=== PATIENT | male | born 1940 | race Caucasian/White ===

== ENCOUNTER 2018-04-12 17:28 | Emergency (ER) | payer MEDICARE, OTHER ==
[2018-04-12 17:43] VITALS: BP 132/73
--- NOTE | 2018-04-12 17:50 | UC ---
Eye Complaint HPI - HPI Summary HPI Summary: This is constanza Be documenting for attending Rahul Arias MD. This patient is a 77 year old M presenting to [facility] with a chief complaint of sudden loss of vision in his right eye since 16:30. The patient reports that the vision in left eye went all friedman and has now regained 1/3 of his outer field of vision. The patient reports he has had 3-4 glasses of wine. The patient rates the pain 0/10 in severity. Symptoms aggravated by nothing. Symptoms alleviated by nothing. Patient denies weakness in one side of the body , shortness of breath, or chest pain. Patient had a thalamic stroke in 2010. - History of Current Complaint Stated Complaint: LOSS OF VISION IN EYE Hx Obtained From: Patient, Family/Magnetic Prospecting Operator - patient's Onset/Duration: Sudden Onset, Lasting Hours - 1 our, Still Present Timing: Hours - 1 hour Severity Currently: None Pain Intensity: 0 Pain Scale Used: 0-10 Numeric Aggravating Factor(s): Nothing Alleviating Factor(s): Nothing Associated Signs And Symptoms: Positive: Vision Impairment Right - Allergies/Home Medications Allergies/Adverse Reactions: Allergies Allergy/AdvReac Type Severity Reaction Status Date / Time bee venom protein (honey bee) Allergy Anaphylatic Verified 04/12/18 18:38 Shock lisinopril Allergy Coughing Verified 04/12/18 18:38 Home Medications: Home Medications Atorvastatin* [Lipitor 40 MG*] 40 mg PO DAILY 04/12/18 [History Confirmed ] Calcium Carbonate/Vitamin D3 [Calcium 500 mg Chewable Tablet] 1 tab PO WEEKLY [History Confirmed 04/12/18] Carvedilol TAB* [Coreg TAB*] 6.25 mg PO DAILY 04/12/18 [History Confirmed ] Cholecalciferol (Vitamin D3) [D3-2000] 2,000 unit PO WEEKLY 04/12/18 [History Confirmed 04/12/18] Dipyridamole/Aspirin 25/200* [Aggrenox 25/200*] 1 cap PO BID 04/12/18 [History Confirmed 04/12/18] Hydrochlorothiazide TAB* [Hydrodiuril TAB*] 25 mg PO DAILY 04/12/18 [History Confirmed 04/12/18] Multivitamin [Multiple Vitamins] 1 tab PO DAILY 04/12/18 [History Confirmed ] Rabeprazole Sodium 20 mg PO DAILY 04/12/18 [History Confirmed 04/12/18] Valsartan TAB* [Diovan TAB*] 160 mg PO DAILY 04/12/18 [History Confirmed ] PMH/Surg Hx/FS Hx/Imm Hx Other Neurological History: thalamic stroke 2010 - Surgical History Surgical History: Yes Surgery Procedure, Year, and Place: brain surgery - Family History Known Family History: Positive: None - patient denies relevant FHx - Social History Alcohol Use: Daily Substance Use Type: None Smoking Status (MU): Former Smoker Review of Systems Constitutional: Negative - negative fever Eyes: Other - sudden vision loss in right eye Cardiovascular: Negative - negative chest pain Neurological: Negative - negative one-sided weakness All Other Systems Reviewed And Are Negative: Yes Physical Exam - Summary Physical Exam Summary: Appearance: Well-appearing, Well-nourished Skin: Warm Eyes: Acute right-side peripheral vision loss, left-side vision intact visual field in other quad normal ENT: Normal Neck: Supple, nontender Respiratory: Clear to auscultation Cardiovascular: Regular rate, regular rhythm. Normal S1, S2. Abdomen: Soft, nontender Musculoskeletal: Normal, Strength/ROM Intact Neurological: Normal, A&Ox3, negative pronator drift, no facial asymmetry, intact rapid alternating hand movements, intact dolu-mi-kitz movements, grossly intact cranial nerves II-XII, tandem gait is inaccurate due to patient having 3- 4 glasses of wine Psychiatric: Normal General: No acute distress Triage Information Reviewed: Yes Vital Signs: Initial Vital Signs Pulse 89 04/12/18 17:34 Resp 18 04/12/18 17:34 BP 132/73 04/12/18 17:34 Pulse Ox 96 04/12/18 17:34 Vital Signs Reviewed: Yes Eye Complaint Course/Dx - Course Course Of Treatment: DDX includes Recurrent stroke (in occipital artey distribution) vs acute retinal detachment vs Amaurosis Fugax- transient retinal artery emboli, but in this pt with prior CVA hx, called EMS to take pt to ED for acute w/u - Differential Dx/Diagnosis Provider Diagnoses: sudden right eye vision loss Discharge - Sign-Out/Discharge Documenting (check all that apply): Patient Departure - Discharge Plan Condition: Guarded Disposition: TRANS HIGHER LVL OF CARE FAC Referrals: No Primary Care Phys,NOPCP [Primary Care Provider] - - Billing Disposition and Condition Condition: GUARDED Disposition: Trans Higher Lvl of Care Fac
== END 2018-04-12 17:59 | disposition short-term general hospital (02) ==
LOC: UCEAST 17:28
DX: H54.61 Unqualified visual loss, right eye, normal vision left eye (principal); Z91.030 Bee allergy status; Z88.8 Allergy status to other drugs, medicaments and biological substances; Z87.891 Personal history of nicotine dependence
CPT/HCPCS: 99203; G0463

== ENCOUNTER 2018-04-12 18:17 | Emergency (ER) | payer MEDICARE, OTHER ==
--- NOTE | 2018-04-12 19:27 | ED ---
Throat Pain/Nasal Congestion - HPI Summary HPI Summary: This is scrzehrae Edilberto Maher documenting for attending Dr. Abdias Betancourt MD. A 77 y/o male HAYDE presents to ED c/o vision changes. Currently, the patient has better vision than earlier before, however, he still experiences a "black/ red floater" in his right eye. As per triage, "he was seen at and sent here via ambulance. after about an hour, he states the vision is coming back with more like floaters that are black". According to the patient, he has been experiencing vision loss/changes of the right eye. His symptoms started at approximately 1630. He found that when he closed his left eye, he sees nothing but friedman out the right eye. He noted that he could still see, however, what he was viewing was friedman scale. Eventually, the right-eye grayness subsided, however , now there is "black and red floater" moving around. He described it as the "radioactive symbol". In the ED room, the patient could see the physician, but there was a reddish blur over his face. It was noted that the patient uses his glasses for distance mostly, but also uses it for everyday activity such as reading, watching television and driving. 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 SHx of ETOH everyday. His cardiomyopathy was thought to be caused by frequent ETOH, however, that was concluded to be false. He has not had carotid surgery because he exhibits no symptoms in which his physician recommends no surgery. Current medications include Aspirin, Hydrochlorothiazide, Valsartan, Rabeprazole Sodium, Atorvastatin, Carvedilol and more. - History of Current Complaint Chief Complaint: EDEyeProblem Time Seen by Provider: 04/12/18 19:21 Hx Obtained From: Patient Onset/Duration: Sudden Onset - 1630, Still Present - Allergies/Home Medications Allergies/Adverse Reactions: Allergies Allergy/AdvReac Type Severity Reaction Status Date / Time bee venom protein (honey bee) Allergy Severe Anaphylatic Verified 04/12/18 22:47 Shock lisinopril AdvReac Mild Coughing Verified 04/12/18 22:47 PMH/Surg Hx/FS Hx/Imm Hx Endocrine/Hematology History: Denies: Hx Diabetes, Hx Thyroid Disease Cardiovascular History: Reports: Hx Hypertension Respiratory History: Denies: Hx Asthma, Hx Chronic Obstructive Pulmonary Disease (COPD) GI History: Denies: Hx Ulcer - Surgical History Surgery Procedure, Year, and Place: brain surgery Infectious Disease History: No Infectious Disease History: Denies: Hx Hepatitis, Hx Human Immunodeficiency Virus (HIV), Traveled Outside the [place] in Last 30 Days - Family History Known Family History: Positive: Other - Benign Familial Palsy - Social History Alcohol Use: Daily Substance Use Type: Reports: None Smoking Status (MU): Former Smoker Review of Systems Negative: Fever Positive: Blurred Vision - Initially viewed friedman scale, however, sees "floaters " now. All Other Systems Reviewed And Are Negative: Yes Physical Exam - Summary Physical Exam Summary: VITAL SIGNS: Reviewed. GENERAL: Patient is a well-developed and nourished male who is lying comfortable in the stretcher. Patient is not in any acute respiratory distress. HEAD AND FACE: No signs of trauma. No ecchymosis, hematomas or skull depressions. No sinus tenderness. EYES: PERRLA, EOMI x 2, No injected conjunctiva, no nystagmus. EARS: Hearing grossly intact. Ear canals and tympanic membranes are within normal limits. MOUTH: Oropharynx within normal limits. NECK: Supple, trachea is midline, no adenopathy, no JVD, no carotid bruit, no c- spine tenderness, neck with full ROM. CHEST: Symmetric, no tenderness at palpation LUNGS: Clear to auscultation bilaterally. No wheezing or crackles. CVS: Regular rate and rhythm, S1 and S2 present, no murmurs or gallops appreciated. ABDOMEN: Soft, non-tender. No signs of distention. No rebound no guarding, and no masses palpated. Bowel sounds are normal. EXTREMITIES: FROM in all major joints, no edema, no cyanosis or clubbing. NEURO: Alert and oriented x 3. No acute neurological deficits. Speech is normal and follows commands. SKIN: Dry and warm GCS: 15 Triage Information Reviewed: Yes Vital Signs On Initial Exam: Initial Vitals Temp Pulse Resp BP Pulse Ox 98.0 F 85 15 128/69 95 04/12/18 18:28 04/12/18 18:28 04/12/18 18:28 04/12/18 18:28 04/12/18 18:28 Vital Signs Reviewed: Yes Diagnostics - Vital Signs Vital Signs Temp Pulse Resp BP Pulse Ox 04/12/18 18:42 65 22 97 04/12/18 18:28 98.0 F 85 15 128/69 95 - Laboratory Result Diagrams: 04/12/18 17:45 04/12/18 17:45 Lab Statement: Any lab studies that have been ordered have been reviewed, and results considered in the medical decision making process. - CT BRAIN CT CT Interpretation Completed By: Radiologist - No acute intracranial abnormality. ED PHYSICIAN REVIEWED THIS RADIOLOGY REPORT. CTA HEAD/NECK CT Interpretation Completed By: Radiologist - CTA HEAD: Reduced caliber of the right internal carotid artery. CTA NECK: Severe stenosis of the right distal common carotid artery. ED PHYSICIAN REVIEWED THIS RADIOLOGY REPORT. - EKG 1953 Cardiac Rate: NL - 84 BPM EKG Interpretation: PVC. Normal axis. Normal interval. No ischemic changes Re-Evaluation - Re-Evaluation First Eval Re-Evaluation Time: 20:49 Comment: Patient did have six consectuative beats of ventricular tachycardia. Monomorphic about 2-seconds. Second Eval Re-Evaluation Time: 22:45 Comment: DISCUSSED ADMISSION AND RESULTS EENT Course/Dx - Course Course Of Treatment: A 77 y/o male BIBA presents to ED c/o vision changes. A CT Brain revealed no acute intracranial abnormality and a GCS of 15. A CTA Head/ Neck revealed the following: CTA HEAD: Reduced caliber of the right internal carotid artery. CTA NECK: Severe stenosis of the right distal common carotid artery. An EKG revealed a rate of 84 BPM, PVC, Normal axis. Normal interval. No ischemic changes. In the ED course, the patient recieved Aspirin, Klor Con Er Tab, Omnipaque and Magnesium Sulfate. At 2048, the patient did have six consectuative beats of ventricular tachycardia. Monomorphic about 2-seconds. Patient care was discussed with Dr. Wells who accepts patient for admission. Pt will be admitted with a diagnosis of transient ventricular tachycardia and TIA. Pt is agreeable with this plan. - Diagnoses Provider Diagnoses: Ventricular tachycardia, TIA (transient ischemic attack) - Provider Notifications Discussed Care Of Patient With: Ronny Wells Time Discussed With Above Provider: 22:35 Instructed by Provider To: Other - Accepts patient for admission. Discharge - Sign-Out/Discharge Documenting (check all that apply): Patient Departure - ADMIT - Discharge Plan Condition: Stable Disposition: ADMITTED TO [facility] Referrals: No Primary Care Phys,NOPCP [Primary Care Provider] -
[2018-04-12 20:03] LABS: ABS Basophils 0 10^3/ul (0-0.2); ABS Eosinophils 0.1 10^3/ul (0-0.6); ABS Lymphocytes 1.9 10^3/ul (1.0-4.8); ABS Monocytes 0.7 10^3/ul (0-0.8); ABS Neutrophils 3.8 10^3/ul (1.5-7.7); ABS Nucleated RBC 0 10^3/ul; Eosinophil % 1.2 % (0-6); Hematocrit 40 % (42-52); Hemoglobin 13.9 g/dl (14.0-18.0); Lymphocyte % 29.4 % (25-47); Mean Corpuscular HGB Conc 35 g/dl (31-36); Mean Corpuscular Hemoglobin 34 pg (27-31); Mean Corpuscular Volume 95 fL (80-94); Mean Platelet Volume 9.2 um3 (7.4-10.4); Nucleated Red Blood Cells % 0.1; Platelet Count 214 10^3/ul (150-450); Red Blood Count 4.14 10^6/ul (4.00-5.40); Red Cell Distribution Width 13 % (10.5-15); White Blood Count 6.5 10^3/ul (3.5-10.8)
[2018-04-12 20:11] LABS: INR 0.91 (0.77-1.02)
[2018-04-12 20:19] LABS: EGFR Non-African American 94.9 (>60)
[2018-04-12] MEDS ORDERED: Iohexol 350* (CONTRAST) 500 ML MDV IV ONE (20:32)
[2018-04-12] MEDS ORDERED: Magnesium Sulfate 2 GM IV* 2 GM/50 ML BAG IVPB ONE (22:20)
[2018-04-12] MEDS ORDERED: Potassium Chlor TAB* 20 MEQ TAB.ER PO ONE (22:20)
[2018-04-12] MEDS ORDERED: Aspirin TAB* 325 MG PO ONE (22:21)
[2018-04-12] MEDS ORDERED: Magnesium Sulfate IV 2 GM in NS 100 ML (Pharmacy Admixed) IV ONE (22:45)
--- NOTE | 2018-04-13 00:23 | CONSULT ---
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 He reports sudden loss of vision in his R eye around 1630 today. When he closed his L eye his entire R eye was friedman. Closing his L eye revealed normal L vision. He denies headache, N/V, focal weakness, chest pain, SOB, palpitations, F/C, sweats, or other issues. He presented to a local urgent care and was referred to [facility] ED for further evaluation. During the subsequent few hours, his R ocular vision has returned with only a "pinkish/purplish central ribbon". He denies HX of same. He reports being evaluated for R endarterectomy ~ 4 years ago and at that time the benefit of the procedure was not felt the risks as he was not having symptoms. 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 HTN HLD TIA thalamic CVA cardiomyopathy known R carotid stenosis familial tremor GERD Ambulatory Orders Atorvastatin* [Lipitor 40 MG*] 40 mg PO DAILY 04/12/18 Calcium Carbonate/Vitamin D3 [Calcium 500 mg Chewable Tablet] 1 tab PO WEEKLY Carvedilol TAB* [Coreg TAB*] 6.25 mg PO DAILY 04/12/18 Cholecalciferol (Vitamin D3) [D3-2000] 2,000 unit PO WEEKLY 04/12/18 Dipyridamole/Aspirin 25/200* [Aggrenox 25/200*] 1 cap PO BID 04/12/18 Hydrochlorothiazide TAB* [Hydrodiuril TAB*] 25 mg PO DAILY 04/12/18 Multivitamin [Multiple Vitamins] 1 tab PO DAILY 04/12/18 Rabeprazole Sodium 20 mg PO DAILY 04/12/18 Valsartan TAB* [Diovan TAB*] 160 mg PO DAILY 04/12/18 Allergies bee venom protein (honey bee) Allergy (Severe, Verified 04/12/18 22:47) Anaphylatic Shock lisinopril Adverse Reaction (Mild, Verified 04/12/18 22:47) Coughing PSurgHx craniotomy as above B carpal tunnel release L ulnar translocation tonsillectomy SocHx: quit cigars ~25 years ago, ~3 alcoholic drinks daily, no recreational drugs; retired [employer] Director; 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 ROS: as above, otherwise reviewed and all were negative vitals: Vital Signs Temp 36.7 C 04/12/18 18:28 Pulse 83 04/12/18 20:56 Resp 26 04/12/18 20:56 BP 150/98 04/12/18 20:56 Pulse Ox 96 04/12/18 20:56 Constitutional: NAD, normally developed, well-nourished white male appearing somewhat younger than his reported age HEENM: atraumatic; sclera/conjunctiva: anicteric/clear; blephara: normal; fundi : relative decrease in normal background retinal erythema on R compared to L, no retinal detachment visualized, no papilledema; auricles: normal; external auditory canals/tympanic membranes: dull retracted R, normal L; hearing: clinically intact; oropharynx: clear/moist; no temporal tenderness/pain Neck: soft tissue: non-tender; thyroid: normal Pulmonary: clear to auscultation bilaterally, good aeration, no accessory muscle use CV: RR/RR, normal S1S2, R carotid bruit, no jugular venous distention, 2+ B DP/ PT, no edema Abdominal: soft, non-distended, non-tender, no rebound/guarding/rigidity, normoactive bowel sounds, no hepatosplenomegaly or masses, no costovertebral angle tenderness Musculoskeletal: general: grossly intact, non-tender; gait: stable Integumental: normal appearance and texture of exposed skin Neurological cranial nerves I: smell reportedly absent 2nd craniotomy II: visual carpenter intact x8 quadrants, reports R visual "pink/purple ribbon" centrally III/IV/: light reflex intact & symmetric, EOMI/PERRLA V: intact facial sensation & mastication VII: intact facial symmetry & eye clench VIII: hearing clinically intact IX/X: symmetric palatal motion, no dysarthria XII: midline tongue protrusion & voice articulation motor: L-handed LUE: 4+/5 proximally, distally, & case management social worker strength RUE: 4+/5 proximally, distally, & case management social worker strength LLE: 4+/5 proximally & distally RLE: 4+/5 proximally & distally coordination finger/nose: complicated 2nd baseline familial tremor, symmetric heal/garrido: intact, symmetric sensory crude touch: intact globally DTRs biceps: 2+ R, unable to test L 2nd IV placement triceps: 2+ B brachioradialis: 1+ B patellar: 1+ B Babinski: downgoing B Psychiatric orientation: AA&O to PPS affect: calm mood: very pleasant, cooperative eye contact: good content: excellent reliability memory: intact responses: timely insight: good Testing: Lab Results 04/12/18 04/12/18 04/12/18 Range/Units 17:45 17:45 17:45 WBC 6.5 (3.5-10.8) 10^3/ul RBC 4.14 (4.00-5.40) 10^6/ul Hgb 13.9 L (14.0-18.0) g/dl Hct 40 L (42-52) % MCV 95 H (80-94) fL MCH 34 H (27-31) pg MCHC 35 (31-36) g/dl RDW 13 (10.5-15) % Plt Count 214 (150-450) 10^3/ul MPV 9.2 (7.4-10.4) um3 Neut % (Auto) 58.0 (38-83) % Lymph % (Auto) 29.4 (25-47) % Robeson % (Auto) 11.0 H (0-7) % Eos % (Auto) 1.2 (0-6) % Baso % (Auto) 0.4 (0-2) % Absolute Neuts (auto) 3.8 (1.5-7.7) 10^3/ul Absolute Lymphs (auto) 1.9 (1.0-4.8) 10^3/ul Absolute Monos (auto) 0.7 (0-0.8) 10^3/ul Absolute Eos (auto) 0.1 (0-0.6) 10^3/ul Absolute Basos (auto) 0 (0-0.2) 10^3/ul Absolute Nucleated RBC 0 10^3/ul Nucleated RBC % 0.1 INR (Anticoag Therapy) 0.91 (0.77-1.02) APTT 29.1 (26.0-36.3) seconds Sodium 141 (135-145) mmol/L Potassium 3.2 L (3.5-5.0) mmol/L Chloride 105 (101-111) mmol/L Carbon Dioxide 25 (22-32) mmol/L Anion Gap 11 (2-11) mmol/L BUN 13 (6-24) mg/dL Creatinine 0.79 (0.67-1.17) mg/dL Est GFR ( Amer) 114.8 (>60) Est GFR (Non-Af Amer) 94.9 (>60) BUN/Creatinine Ratio 16.5 (8-20) Glucose 80 (70-100) mg/dL Calcium 9.4 (8.6-10.3) mg/dL Magnesium 1.6 L (1.9-2.7) mg/dL Total Bilirubin 0.60 (0.2-1.0) mg/dL AST 23 (13-39) U/L ALT 22 (7-52) U/L Alkaline Phosphatase 50 (34-104) U/L Troponin I 0.03 (<0.04) ng/mL C-Reactive Protein < 1.00 (<8.01) mg/L Total Protein 6.8 (6.4-8.9) g/dL Albumin 4.1 (3.2-5.2) g/dL Globulin 2.7 (2-4) g/dL Albumin/Globulin Ratio 1.5 (1-3) ECG, personally reviewed: sinus 1st degree AV block rate 84, no ischemia, occasional PVC; no comparison CT brain WO, personally reviewed: IMPRESSION: No acute intracranial abnormality CTA head/neck, personally reviewed: Severe (70-94%) stenosis at the right common carotid artery bifurcation with greatly reduced caliber of the right internal carotid artery distal to this point. No dissection or occlusion. 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, HTN, HLD, TIA, thalamic CVA, cardiomyopathy, & known R carotid stenosis presents with R amaurosis fugax & severe (70-94%) R common carotid stenosis with DIAGNOSIS & PLAN Primary R amaurosis fugax in setting of severe (70-94%) R carotid stenosis : case reviewed w/ S MD Gabriela neurology on-call who felt patient would be best cared for in a facility w/ ability to perform carotid endarterectomy or stenting : physician to physician check out with Dr Katharine Rodríguez MD vascular surgeon at [facility] who accepted the transfer : recommended dual anti-platelet and max dose statin : given 325mg aspirin by ED, will order 75mg clopidogrel : takes atorvastatin 40mg daily, will give additional 40mg now 5 beats asymtpomatic VT in setting Magnesium 1.6 & potassium 3.2 : potassium & magnesium given, telemetry Secondary 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 : no acute issues HTN : continue HCTZ, valsartan, & carvedilol HLD : continue atorvastatin at increased dose of 80mg daily HX thalamic CVA HX TIA : D/C dipyridamole/aspirin : start dual antiplatelet as above cardiomyopathy : continue carvedilol familial tremor : no acute issues GERD : continue rabeprazole Critical Care time: 165minutes with ~60minutes spent face to face with the patient/ obtaining history, performing a detailed examination, explaining diagnosis/treatment options & associated risks and benefits; the remainder spent on reviewing laboratory results, radiologic studies, consulting with the ED physician, neurologist, & vascular surgeon, and preparing final report to send with patient
[2018-04-13] MEDS ORDERED: Atorvastatin* 40 MG TAB PO ONE (00:58)
[2018-04-13 01:40] VITALS: BP 175/94
--- NOTE | 2018-04-13 07:46 | RAD ---
INDICATION: TIA COMPARISON: None TECHNIQUE: Noncontrast axial source images were acquired from the skull base to the vertex. FINDINGS: Ventricles/sulci: There is diffuse cortical atrophy with compensatory dilatation of the CSF spaces. Brain parenchyma: There is no acute focal parenchymal finding, evidence of intracranial mass, or intracranial mass effect. There are chronic microvascular ischemic changes with decreased attenuation in the periventricular and subcortical white matter Intracranial hemorrhage:None. Extra-axial spaces: There are no abnormal extra axial fluid collections or evidence of extra-axial mass. Calvarium: There is evidence of frontal craniotomy. Scalp: There is no evidence of scalp or extracalvarial soft tissue abnormality. Paranasal sinuses/mastoid: The paranasal sinuses and mastoid air cells are clear. Other: None. IMPRESSION: PRIOR FRONTAL CRANIOTOMY. DIFFUSE CORTICAL ATROPHY WITH CHRONIC MICROVASCULAR ISCHEMIA. NO ACUTE INTRACRANIAL FINDINGS.
--- NOTE | 2018-04-13 07:54 | RAD ---
HISTORY: TIA COMPARISONS: Head CT dated April 12, 2018 TECHNIQUE: Multiple contiguous axial CT scans were obtained of the head and neck after the Administration of nonionic intravenous contrast timed to the systemic arterial phase of contrast enhancement. Coronal and sagittal multiplanar reformations are submitted for review. Multiple 3-D maximum intensity projection reconstructions are also submitted for review. FINDINGS: CTA NECK: AORTIC ARCH: There is a normal three-vessel branching pattern of the aortic arch. There is no ostial or proximal stenosis of the cephalic great vessels. RIGHT VERTEBRAL ARTERY: The right vertebral artery is patent along its course, without stenosis. LEFT VERTEBRAL ARTERY: The left vertebral artery is patent along its course, without stenosis. DOMINANCE: The left vertebral artery is dominant. RIGHT COMMON CAROTID ARTERY: The right common carotid artery is patent. The right carotid bifurcation occurs at C3-C4 RIGHT INTERNAL CAROTID ARTERY: There is eccentric noncalcified and calcified atherosclerotic plaque of the proximal right internal carotid artery at the bifurcation. This results in high-grade preocclusive stenosis of the right internal carotid artery (99% plus by NASCET criteria) extending for approximately 1.6 cm in length. There is diminished caliber of the distal right internal carotid artery consistent with a flow-limiting stenosis. RIGHT EXTERNAL CAROTID ARTERY: The right external carotid artery is unremarkable. LEFT COMMON CAROTID ARTERY: The left common carotid artery is patent. The left carotid bifurcation occurs at C3-C4 LEFT INTERNAL CAROTID ARTERY: There is atheromatous disease of the left carotid bifurcation, without left internal carotid artery stenosis by NASCET criteria. LEFT EXTERNAL CAROTID ARTERY: The left external carotid artery is unremarkable. VENOUS CIRCULATION: The venous system is unremarkable. SALIVARY GLANDS: The parotid glands, submandibular glands, sublingual glands are normal. NASAL CAVITY/NASOPHARYNX: The nasal cavity and nasopharynx are normal. ORAL CAVITY/OROPHARYNX: The oral cavity is obscured by streak artifact from dental amalgam. The visualized oral cavity and oropharynx are unremarkable. LARYNGEAL APPARATUS/HYPOPHARYNX: The laryngeal apparatus and hypopharynx are normal. UPPER AIRWAY/UPPER ESOPHAGUS: The visualized upper airway and esophagus are normal. LUNG APICES: The lung apices are clear. THYROID GLAND: The thyroid gland is normal. LYMPH NODES: There is no lymphadenopathy by size criteria. BONES AND SOFT TISSUES: Degenerative changes are noted of the spine. CTA HEAD: INTRACRANIAL CIRCULATION: There is no aneurysm, vascular malformation, occlusion, or stenosis of the visualized intracranial circulation. The anterior communicating artery complex is clear. Bilateral posterior communicating arteries are identified. VENOUS CIRCULATION: The venous system is unremarkable. PERFUSION: There is no obvious parenchymal perfusion deficit. HEMORRHAGE/INFARCT: There is no hemorrhage or acute infarct. MASSES/SHIFT: There is no mass or shift. EXTRA-AXIAL SPACES: There are no extra-axial fluid collections. SULCI AND VENTRICLES: The sulci and ventricles are normal in size and position for the patient's stated age. CEREBRUM: There is hypoattenuation of the periventricular and subcortical white matter. BRAINSTEM: There are no focal parenchymal abnormalities. CEREBELLUM: There are no focal parenchymal abnormalities. PARANASAL SINUSES: The paranasal sinuses are clear. ORBITS: The orbits are unremarkable. BONES AND SOFT TISSUE: No bone or soft tissue abnormalities are noted. OTHER: There is evidence of previous craniotomy. IMPRESSION: 1. 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 2. NO LEFT INTERNAL CAROTID ARTERY STENOSIS BY NASCET CRITERIA. 3. NO ANEURYSM, VASCULAR MALFORMATION, OCCLUSION, OR STENOSIS OF THE VISUALIZED INTRACRANIAL CIRCULATION.. 4. CHRONIC SMALL VESSEL ISCHEMIC CHANGE. CPT II Codes: 3100F R2
[2018-04-14] MEDS ORDERED: Clopidogrel TAB* 75 MG PO ONE (00:59)
== END 2018-04-13 01:25 | disposition short-term general hospital (02) ==
LOC: ED 18:17
DX: I47.2 Ventricular tachycardia (principal); G45.9 Transient cerebral ischemic attack, unspecified; G45.3 Amaurosis fugax; I42.9 Cardiomyopathy, unspecified; E78.5 Hyperlipidemia, unspecified; G25.0 Essential tremor; I10 Essential (primary) hypertension; E78.00 Pure hypercholesterolemia, unspecified; K21.9 Gastro-esophageal reflux disease without esophagitis; Z79.82 Long term (current) use of aspirin; Z79.899 Other long term (current) drug therapy; Z82.3 Family history of stroke; Z82.0 Family history of epilepsy and other diseases of the nervous system; Z87.891 Personal history of nicotine dependence; Z88.8 Allergy status to other drugs, medicaments and biological substances; H54.61 Unqualified visual loss, right eye, normal vision left eye; Z91.030 Bee allergy status
CPT/HCPCS: 36415; 70450; 70496; 70498; 80053; 83735; 84484; 85025; 85610; 85730; 86140; 93005; 96374; 99285; A9270-GY; J3475; Q9967